=== PATIENT | female | born 1945 | race Caucasian/White ===

== ENCOUNTER 2020-02-15 14:36 | Emergency (ER) | payer MEDICARE, OTHER ==
[~2020-02-15] VITALS: Ht 170.2 cm; Wt 81.8 kg
[~2020-02-15 14:36] MED LIST: ASPIRIN EC81 MG PO; MUCINEX D1 TAB PO; ZITHROMAX250 MG PO; ZYRTEC10 MG PO
[2020-02-15] MEDS ORDERED: ATORVASTATIN CA20 MG PO (16:01)
[2020-02-15] MEDS ORDERED: HYDROCHLOROT25 MG PO (16:01)
[2020-02-15] MEDS ORDERED: METOPROLOL SUCC50 MG PO (16:01)
[2020-02-15] MEDS ORDERED: PERCOCET 5/325M1 TAB PO (17:12)
[2020-02-15 17:45] VITALS: BP 127/79
== END 2020-02-15 17:45 | disposition home or self-care (01) ==
LOC: ED 14:36
PROC: 2W3BXYZ Immobilization of Left Upper Arm using Other Device (ICD-10-PCS; principal; 2020-02-15)
DX: S42.292A Other displaced fracture of upper end of left humerus, initial encounter for closed fracture (principal); S22.32XA Fracture of one rib, left side, initial encounter for closed fracture; W11.XXXA Fall on and from ladder, initial encounter; Y93.89 Activity, other specified; Y92.009 Unspecified place in unspecified non-institutional (private) residence as the place of occurrence of the external cause

== ENCOUNTER 2021-06-03 10:11 | Day surgery (SDC) | payer MEDICARE, OTHER ==
[~2021-06-03] VITALS: Ht 162.6 cm; Wt 95.3 kg
[~2021-06-03 10:11] MED LIST changes: +ASPIRIN ADULT L81 M2 PO; +ATORVASTATIN CA20 MG PO; +CALCIUM + D3 601 TAB PO; +CENTRUM SILVER1 TA1 PO; +CLARITIN-D1 TA2 PO; +CRANBERRY200 MG PO; +DIOVAN80 MG PO; +FISH OIL1000 M2 PO; +GLUCOSAMINE CHO1 CA3 PO; +HYDROCHLOROT25 MG PO; +METOPROLOL SUCC50 MG PO; +PERCOCET 5/325M1 TAB PO; +STOOL SOFTENER100 M1 PO; +TRUBIOTICS PO
[2021-06-03 14:14] VITALS: BP 157/92
== END 2021-06-03 14:05 | disposition home or self-care (01) ==
LOC: ENDO 10:11
PROVIDERS: ATTEND Surgery
PROC: 0DBB8ZX Excision of Ileum, Via Natural or Artificial Opening Endoscopic, Diagnostic (ICD-10-PCS; principal; 2021-06-03)
PROC: 0DBE8ZX Excision of Large Intestine, Via Natural or Artificial Opening Endoscopic, Diagnostic (ICD-10-PCS; 2021-06-03)
DX: R19.7 Diarrhea, unspecified (principal); I10 Essential (primary) hypertension